=== PATIENT | male | born 1995 | race Caucasian/White ===

== ENCOUNTER 2019-11-23 07:31 | Emergency (ER) | payer MEDICAID ==
[~2019-11-23] VITALS: Ht 182.9 cm; Wt 131.5 kg
[2019-11-23 08:25] VITALS: BP_SYST 131
[2019-11-23] MEDS ORDERED: NACL 0.9% 1,000 ML IV ONE (08:30)
[2019-11-23 09:33] VITALS: BP_SYST 131
== END 2019-11-23 09:33 | disposition home or self-care (01) ==
LOC: SED 07:31
DX: F19.10 Other psychoactive substance abuse, uncomplicated (principal)
CPT/HCPCS: 93005; 99283; J7030

== ENCOUNTER 2019-12-10 03:51 | Emergency (ER) | payer MEDICAID ==
[~2019-12-10] VITALS: Ht 182.9 cm; Wt 117.9 kg
[2019-12-10 04:00] VITALS: BP_SYST 141
--- NOTE | 2019-12-10 04:00 | NUR ---
Patient to ER bed 7 to gown for evaluation. Side rails up. Report given to Mag KILPATRICK.
--- NOTE | 2019-12-10 04:13 | NUR ---
Patient is alert and oriented x4 and states he was asleep then woke up and was sitting down on couch when he started feeling a "weird feeling" and heart started beating fast and felt like he could barely breath. Patient states he will randomly feel uneasy and forgetful. Patient reports he started feeling this way about 20 mins prior coming to the ER. Patient denies drinking alcohol or doing any drugs in the past 24 hours. Patient denies any other medical complaints at this time. Will continue to monitor.
--- NOTE | 2019-12-10 04:13 | NUR ---
Note [email or web address] in EDM - 12/10/19 at 0425 by JAMIE Patient is alert and oriented x4 and states he was asleep then woke up and was sitting down on couch when he started feeling a "weird feeling" and heart started beating fast and felt like he could barely breath. Patient states he will randomly feel uneasy and forgetful. Patient reports he started feeling this way about 20 mins prior coming to the ER. Patient denies any other medical complaints at this time. Will continue to monitor.
--- NOTE | 2019-12-10 04:20 | NUR ---
ER Dr. Guardado at bedside examining patient.
[2019-12-10] MEDS ORDERED: DIAZEPAM 5 MG TABLET (VALIUM) PO ONE (04:45)
--- NOTE | 2019-12-10 04:52 | NUR ---
Patient admits to [facility] alcohol on [facility], believes he drank about a 12 pack of beer. Patient states he took a xanax and did 'nos' as well. Patient reports his last drink was at 10pm on 12/07/2019 because he fell asleep. Patient states he has not had anything to drink or done drugs since then. notified.
--- NOTE | 2019-12-10 05:04 | NUR ---
Patient reports he used cocaine yesterday and has a normal cocaine use habit.
[2019-12-10 05:24] VITALS: BP_SYST 133
--- NOTE | 2019-12-10 05:24 | NUR ---
Patient given written and verbal discharge instructions and verbalizes understanding. ER MD discussed with patient the results and treatment provided. Patient in stable condition. ID arm band removed. No Rx given. Patient educated on pain management and to follow up with PMD. Pain Scale 0/10. Opportunity for questions provided and answered. Medication side effect fact sheet provided.
== END 2019-12-10 05:24 | disposition home or self-care (01) ==
LOC: SED 03:51
DX: F41.9 Anxiety disorder, unspecified (principal); R00.2 Palpitations; I10 Essential (primary) hypertension; F14.90 Cocaine use, unspecified, uncomplicated; Z72.89 Other problems related to lifestyle
CPT/HCPCS: 93005; 99283

== ENCOUNTER 2020-08-18 15:35 | Emergency (ER) | payer MEDICAID ==
[~2020-08-18] VITALS: Ht 180.3 cm; Wt 113.4 kg
[2020-08-18 15:40] VITALS: BP_SYST 167
[2020-08-18] MEDS ORDERED: CLOT15CR5 TP (16:30)
[2020-08-18 17:04] VITALS: BP_SYST 167
== END 2020-08-18 16:50 | disposition home or self-care (01) ==
LOC: SED 15:35
DX: B35.4 Tinea corporis (principal); F14.90 Cocaine use, unspecified, uncomplicated
CPT/HCPCS: 99283

== ENCOUNTER 2021-03-02 20:27 | Emergency (ER) | payer MEDICAID, SELFPAY ==
[~2021-03-02] VITALS: Ht 180.3 cm; Wt 124.7 kg
[~2021-03-02 20:27] MED LIST: CLOT15CR5 TP
[2021-03-02 20:40] VITALS: BP_SYST 134
--- NOTE | 2021-03-02 20:40 | NUR ---
PT TO REMAIN OUTSIDE IN COVID TENT FOR RESULTS. NO ER BED AVAILABLE.
--- NOTE | 2021-03-02 20:41 | NUR ---
PT AAO AND AMBULATING REPORTING WORSENING SOB, COUGH, AND LOSS OF TASTE AND SMELL X 4 DAYS. PT IS UNVACCINATED AND REQUESTS COVID TEST. V/S STABLE CURRENTLY AND HAS NO S/S OF DISTRESS.
--- NOTE | 2021-03-02 20:42 | NUR ---
DR. LAU TO CHAIR TO ASSESS.
[2021-03-02] MEDS ORDERED: ALBU8.5H8 INH (21:54)
[2021-03-02] MEDS ORDERED: ZIT250 PO (21:54)
[2021-03-02] MEDS ORDERED: PRED20TA PO (21:54)
[2021-03-02] MEDS ORDERED: predniSONE 20 MG TABLET ONE (21:58)
[2021-03-02] MEDS ORDERED: predniSONE 20 MG TABLET PO ONE (22:00)
--- NOTE | 2021-03-02 22:00 | NUR ---
Patient given written and verbal discharge instructions and verbalizes understanding. DR. JUDI HAYWARD MD discussed with patient the results and treatment provided. Patient in stable condition. ID arm band removed. Rx PER DR. LAU. Patient educated on pain management and to follow up with PMD. Pain Scale 0/10. Opportunity for questions provided and answered. Medication side effect fact sheet provided.
[2021-03-02 22:05] VITALS: BP_SYST 134
== END 2021-03-02 22:05 | disposition home or self-care (01) ==
LOC: SED 20:27
DX: U07.1 COVID-19 (principal); Z79.899 Other long term (current) drug therapy
CPT/HCPCS: 71045; 87426; 99284; J7512; 36415

== ENCOUNTER 2021-03-23 23:55 | Emergency (ER) | payer MEDICAID, SELFPAY ==
[~2021-03-23] VITALS: Ht 180.3 cm; Wt 124.7 kg
[~2021-03-23 23:55] MED LIST changes: +ALBU8.5H8 INH; +PRED20TA PO; +ZIT250 PO
[2021-03-24 00:03] VITALS: BP_SYST 125
[2021-03-24] MEDS ORDERED: AMOX500C2 PO (00:58)
[2021-03-24] MEDS ORDERED: IBUP-1970 PO (00:58)
[2021-03-24] MEDS ORDERED: PENICILLIN G BENZATHINE 1.2 MMU/2 ML SYR IM ONE (01:00)
[2021-03-24] MEDS ORDERED: DEXAMETHASONE SOD PHOSPHATE 10 MG/ML VIAL IM ONE (01:00)
[2021-03-24 01:16] VITALS: BP_SYST 125
== END 2021-03-24 01:15 | disposition home or self-care (01) ==
LOC: SED 23:55
DX: J02.0 Streptococcal pharyngitis (principal); Z79.899 Other long term (current) drug therapy
CPT/HCPCS: 96372; 99284; J0561; J1100